=== PATIENT | male | born 1955 | race Caucasian/White ===

== ENCOUNTER → 2017-06-11 | Outpatient (CLI) | payer OTHER, MEDICAID ==
[~2017-06-11] MED LIST: ALBU2.5V11 NEB; ALPR-475 PO; ALPR0.254 PO; AMLO10TA2 PO; AMLO5TAB2 PO; ASPI-515 PO; BISA10SU54 PR; BUSP30TA PO; DIAZ10TA4 PO; DOCU-131 PO; DULO60CA7 PO; EZET10TA18 PO; FURO40TA6 PO; HEPA500024 SC; HYDR-3240 PO; HYDR-3307 PO; HYDR25CA PO; INSU100C SQ-INSULIN; IRON45TA6 PO; LINA5TAB PO; LISI-170 PO; MAGN400T22 PO; MAGN400T7 PO; OMEG1CAP2 PO; OXYC-307 PO; POTA20TA6 PO; PREG150C PO; RISP1TAB3 PO; SULF1TAB24 PO; TRAZ100T15 PO
== END | disposition home or self-care (01) ==
LOC: CFH 07:44
PROVIDERS: ATTEND Pain Medicine Interventional Pain Medicine
DX: M17.11 Unilateral primary osteoarthritis, right knee (principal); M25.761 Osteophyte, right knee